=== PATIENT | male | born 1945 | race Caucasian/White ===

== ENCOUNTER 2020-09-07 13:25 | Inpatient (IN) | payer OTHER ==
[2020-09-07] VITALS (12 sets, daily range): BP systolic 121–168; BP diastolic 73–91
[~2020-09-07] VITALS: Ht 185.4 cm; Wt 99.8 kg
--- NOTE | ~2020-09-07 | EMS ---
[address] [address] EMS Patient Care Report Name: NATHAN COX Room #: 207-P ADM IN M.R.#: [id number] Admission: 09/07/20 Attend Phys: Nathan Zamarripa MD Discharge: Date of : 45 Report #: [id number] THIS REPORT FOR: //name// Report Transmitted: 09/08/2020 05:56 EMS Care Summary [facility] MED-ACT Incident [id number] @ 09/07/2020 12:52 Incident Location [address] [place] [address] Patient NATHAN COX Male, 74 Years 1945 Patient Address [address] [place] [address] Patient History None Reported, Patient Allergies Morphine, Patient Medications Ibuprofen, Chief Complaint Chest pain Disposition Transported No Lights/[place] Dispatch Reason Chest Pain (Non-Traumatic) Transported To [facility] Narrative Complaint: Chest pain History: Pt reports that he was cleaning the house, finishing vacuuming, when he had a sudden onset of substernal chest pain that radiated down his left arm. [address] [address] EMS Patient Care Report Name: NATHAN COX Room #: 207-P ADM IN M.R.#: [id number] Admission: 09/07/20 Attend Phys: Nathan Zamarripa MD Discharge: Date of : 45 Report #: [id number] Pt reports that his pain is more of a pressure and rates it a 9/10 on pain scale. Pt states that his pain is much like a pain he had last Wednesday night that lasted all night long. He reports that episode was from gas and was thinking that today's event was also gas. Pt states that he took his Ibuprofen with no relief of symptoms and called 911 after pain became worse and wouldn't go away. Pt reports taking Aspirin prior to EMS arrival as instructed by 911. Assessment: Pt found lying supine on floor in room of home, pt is mildly clammy and has minor s / s of distress secondary to chest pain. Pt has no obvious s / s of trauma noted. Rendered Treatment: Pt evaluated, history obtained, vitals assessed with bilateral BP's, EKG monitored with 12 lead. STEMI noted and EKG sent to [facility]. Quick combo pads placed on patient, nitro administered. STEMI notification to [facility] ER given. Pt assisted into stair chair and to front yard, assisted onto cot, secured and moved to unit. Transport: Pt transported to ER with two medics in back and FF otr refrigerated cdl truck driver. EKG monitored, IV established, nitro administered, pain medication administered, follow up 12 lead performed. Destination: Pt transported to [facility] ER via EMS. Pt care transferred to RN in ER room 1 with no changes en route. Pt moved to ER bed via 4 person sheet drag. Initial Vitals @13:01MI Suspected: true @13:20MI Suspected: true @13:12P: 88,R: 20,BP: 180/72,Glucose: 245, @12:59P: 87,R: 20,BP: 199/114,SpO2: 95, @13:22P: 93,R: 20,BP: 163/92,Pain: 9/10,SpO2: 96, @13:02P: 88,R: 20,BP: 194/117,SpO2: 98, @12:58P: 90,R: 20,BP: 201/130,Pain: 9/10,GCS: 15,Temp: 97.5F,SpO2: 98,Revised Trauma: 12, Assessments @13:02MENTAL:Person Oriented,Time Oriented,Place Oriented,Event Oriented,SKIN:Other,HEENT:Head/Face: No Abnormalities,Eyes: No Abnormalities,LUNG SOUNDS:ABDOMEN:PELVIS//GI:EXTREMITIES:Left Arm: No Abnormalities,Right Arm: No Abnormalities,Left Leg: No Abnormalities,Right Leg: No Abnormalities,PULSE:Radial: 2+ Normal,NEURO: Impression Acute Coronary Syndrome Procedures [address] [address] EMS Patient Care Report Name: NATHAN COX Room #: 207-P ADM IN .R.#: [id number] Admission: 09/07/20 Attend Phys: Nathan Zamarripa MD Discharge: Date of : 45 Report #: [id number] @13:0112-Lead ECGResponse: UnchangedSucceeded@-Lead ECGResponse: UnchangedSucceeded@PTAAspirin - 324 Milligrams (mg) - OralResponse: Unchanged@13:03Nitroglycerin - 0.4 Milligrams (mg) - SublingualResponse: Improved@13:15Nitroglycerin - 0.4 Milligrams (mg) - SublingualResponse: Unchanged@13:17Fentanyl - 50 Micrograms (mcg) - Intravenous (IV)Response: Unchanged@13:23Fentanyl - 50 Micrograms (mcg) - Intravenous (IV)Response: Unchanged@13:15Surgical Mask on PatientResponse: Unchanged@13:02ECG TransmittedResponse: Unchanged@13:05ALS AssessmentSucceeded@13:14Saline Lock 10cc (18 ga) Site: Antecubital-RightResponse: UnchangedSucceeded Timeline CO CHAIRMAN,Aspirin - 324 Milligrams (mg) - Oral,Response: Unchanged 12:51,Call Received 12:51,Psap Call 12:52,Dispatched 12:53,En Route 12:55,On Scene 12:56,At Patient 12:58,BP: 201/130 M,PULSE: 90,RR: 20 R,SPO2: 98 Ox,ETCO2: ,BG: ,PAIN: 9,GCS: 15, 12:59,BP: 199/114 M,PULSE: 87,RR: 20 R,SPO2: 95 Ox,ETCO2: ,BG: ,PAIN: ,GCS: , 13:01,12-Lead ECG,Response: UnchangedSucceeded, 13:01,BP: / M,PULSE: ,RR: R,SPO2: Ox,ETCO2: ,BG: ,PAIN: ,GCS: , 13:02,ECG Transmitted,Response: Unchanged 13:02,BP: 194/117 M,PULSE: 88,RR: 20 R,SPO2: 98 Ox,ETCO2: ,BG: ,PAIN: ,GCS: , 13:03,Nitroglycerin - 0.4 Milligrams (mg) - Sublingual,Response: Improved 13:05,ALS Assessment,Succeeded, 13:12,BP: 180/72 M,PULSE: 88,RR: 20 R,SPO2: Ox,ETCO2: ,B,PAIN: ,GCS: , 13:13,Depart Scene 13:14,Saline Lock 10cc 18 ga Site: Antecubital-Right,Response: UnchangedSucceeded, 13:15,Nitroglycerin - 0.4 Milligrams (mg) - Sublingual,Response: Unchanged 13:15,Surgical Mask on Patient,Response: Unchanged 13:17,Fentanyl - 50 Micrograms (mcg) - Intravenous (IV),Response: Unchanged 13:20,12-Lead ECG,Response: UnchangedSucceeded, 13:20,BP: / M,PULSE: ,RR: R,SPO2: Ox,ETCO2: ,BG: ,PAIN: ,GCS: , 13:22,BP: 163/92 M,PULSE: 93,RR: 20 R,SPO2: 96 Ox,ETCO2: ,BG: ,PAIN: 9,GCS: , 13:23,Fentanyl - 50 Micrograms (mcg) - Intravenous (IV),Response: Unchanged 13:23,At Destination 13:51,Call Closed Disclaimer v1.1 Copyright 2020 [employer] This EMS Care Summary contains data elements from the applicable legal record (which may be displayed differently). It is designed to provide pertinent information for the following purposes: continuity of care, clinical quality, [address] [address] EMS Patient Care Report Name: NATHAN COX Room #: 207-P ADM IN M.R.#: [id number] Admission: 09/07/20 Attend Phys: Nathan Zamarripa MD Discharge: Date of : 45 Report #: [id number] and state data reporting. The complete legal record is available to ED staff and administrators of the receiving hospital in [facility]'s Patient Tracker. All data is provided "as is."
[2020-09-07 13:44] LABS: ABSOLUTE NEUTROPHILS 11.6 thou/uL (1.4-8.2); BASOPHILS 0.3 % (0.0-2.0); EOSINOPHILS 0.9 % (0.0-3.0); HEMOGLOBIN 14.9 gm/dL (14.0-18.0); LYMPHOCYTES 10.4 % (24.0-44.0); MCH 31.3 pg (26.0-34.0); MCHC 34.7 g/dL (28.0-37.0); MCV 90.2 fL (80.0-100.0); MONOCYTES 2.8 % (1.0-8.0); PLATELET COUNT 186 thou/uL (150-400); POLYS 85.6 % (36.0-66.0); RBC 4.77 mil/uL (4.50-6.00); WBC 13.5 thou/uL (4.0-11.0)
[2020-09-07 13:54] LABS: POTASSIUM 4.3 mmol/L (3.5-5.1)
[2020-09-07 13:59] LABS: APTT 23.4 Seconds (24.5-32.8); INR 0.95; PROTIME 10.4 Seconds (10.5-12.1)
[2020-09-07 14:04] LABS: TOTAL BILIRUBIN 0.6 mg/dL (0.2-1.0); TOTAL PROTEIN 6.8 g/dL (6.4-8.2); TROPONIN-I 0.59 ng/mL (<0.06)
--- NOTE | 2020-09-07 18:24 | H ---
[facility] [place] [address] HISTORY AND PHYSICAL Name: NATHAN COX Room #: 207-P ADM IN M.R.#: [id number] Admission: 09/07/20 Attend Phys: Nathan Zamarripa MD Discharge: Date of : 45 Report #: [id number] THIS REPORT FOR: cc: [facility] - Clinic physician unknown [facility] - Clinic physician unknown Mark Galindo MD ~ DATE OF SERVICE: 09/07/2020 REASON FOR CONSULTATION: Acute myocardial infarction. HISTORY OF PRESENT ILLNESS: This is a 74-year-old gentleman who has been having problems with gas for quite some time. He had an episode last week where he had substernal epigastric discomfort and was relieved after flatulence occurred. He had been doing fine until today at 11:30 when he started having the same symptomatology while he was doing routine housework. Nothing strenuous. He states the discomfort is epigastric, substernal and feels like a pressure sensation that did not get relieved. He did take some ibuprofen for the discomfort and became diaphoretic. They sought medical attention when the symptoms persisted. He denies any prior history of hypertension, tobacco dependence or other major issues. He is a diet-controlled diabetic. PAST MEDICAL HISTORY: 1. Degenerative joint disease. 2. Diet controlled diabetes. ALLERGIES: MORPHINE. SOCIAL HISTORY: The patient is , does not smoke, does not consume alcohol, but socially, he does not use recreational drugs. REVIEW OF SYSTEMS: ____ a 10-point review of system is negative. LABORATORY DATA: Echocardiogram normal sinus rhythm, ST segment elevation in V2 through V5 without reciprocal changes. LABORATORY DATA: Known and reviewed in the chart. Initial troponin is pending. BUN and creatinine are 13 and 1.0 with a potassium of 4.3. H and H is ____. RADIOLOGIC: Chest x-ray demonstrates no acute changes. PHYSICAL EXAMINATION: GENERAL: Well-developed, well-nourished male in mild distress, which he states his discomfort is the least that it has been since it began. VITAL SIGNS: Blood pressure is 150/90, respirations are 16-18, temperature is 36.4, heart rate is 80 and regular. O2 sat is 97%. HEENT: Normocephalic, atraumatic. Pupils are equal, round, reactive to light [facility] [address] [place] [address] HISTORY AND PHYSICAL Name: NATHAN COX Room #: [address] [place] [address] IN M.R.#: [id number] Admission: 09/07/20 Attend Phys: Nathan Zamarripa MD Discharge: Date of : 45 Report #: [id number] and accommodation. Extraocular muscles are intact. Sclerae and conjunctivae are anicteric. NECK: JVD is normal. Carotid upstrokes are bilaterally symmetrical. No bruits are heard. No thyromegaly. No lymphadenopathy. LUNGS: Clear to auscultation. No wheezes, rhonchi or crackles. No CVA tenderness. CARDIAC: Demonstrates a regular rhythm. Normal first and second heart sounds. No ventricular or atrial gallops, no rubs noted. No murmurs. No lifts or heaves, PMI normal. ABDOMEN: Soft, nontender, nondistended. Normal bowel sounds. EXTREMITIES: Without cyanosis, clubbing or edema. Distal pulses are intact. DTR symmetrical. NEUROLOGIC: Cranial nerves 2-12 are grossly normal and symmetrical. PSYCHIATRIC: Alert, oriented with normal affect. SKIN: Warm and dry. IMPRESSION: 1. Acute ST segment elevation myocardial infarction. I discussed options of medical versus invasive and increased risk with both aspects. The patient wishes to proceed invasively. The risks, complications, and alternatives of cardiac catheterization, percutaneous revascularization conscious sedation were discussed with the patient with the present; he voiced understanding and wished to proceed. 2. Diabetes, diet controlled. We will need to monitor and evaluate this post-procedure. 3. Degenerative joint disease, on medication analgesics. <ELECTRONICALLY SIGNED> By: Mark Galindo MD 09/07/20 1824 1311 1328 Mark Galindo MD /nt
--- NOTE | 2020-09-07 18:59 | NUR ---
RECEIVED PT FROM THE [facility]. R GROIN MYNX CLOSURE, C/D/I, NO HEMATOMA. ADMISSION COMPLETED. POST CATH VITALS COMPLETED. PT COMPLETED ANGIOMAX GTT. PT TO CONTINUE ON NITRO GTT AT 2.5 MCG/KG/MIN, OR 14.5ML/HR. VSS, AFEBRILE, SR ON MONITOR. C/O PAIN IN CHEST RELATED TO CARD CATH. POC IS TO CONTINUE TO ASSESS CATH SITE; NITRO DRIP NEEDED FOR BP. BEDREST COMPLETED AT 1800. FALL PRECAUTIONS IN PLACE. NO CONCERNS AT THIS TIME.
--- NOTE | 2020-09-07 22:18 | NUR ---
AT APPROXIMATELY 2140 DURING ROUNDS NURSE WAS INFORMED BY PATIENT THAT PRESSURE AND PAIN HAVE RETURNED TO CHEST WHICH HE RATED 3-4/10. PATIENT STATED THAT HE HAS BEEN HAVING PRESSURE "ON AND OFF" THE PRECEDING HOUR. NURSE PROMPTLY PUT IN ORDER FOR STAT EKG AND PLACED CALL TO [employer]. NURSE RECEIVED ORDERS FOR INTEGRILLIN BOLUS AND GTT. PATIENT ALSO INFORMED TO LET NURSING STAFF KNOW WHEN PRESSURE AND PAIN DEVELOP AND NOT WAIT FOR STAFF TO ARRIVE IN THE ROOM. VITAL SIGNS STABLE. NURSE TO CONTINUE TO ASSESS.
[2020-09-08] VITALS (8 sets, daily range): BP systolic 121–147; BP diastolic 66–81
[2020-09-08 05:36] LABS: GLYCOHEMOGLOBIN (HGB A1C) 7.6 % (4.8-5.6)
[2020-09-08 12:31] LABS: HEMATOCRIT 37.9 % (42.0-52.0); HEMOGLOBIN 13.1 gm/dL (14.0-18.0); MCH 31.3 pg (26.0-34.0); MCHC 34.6 g/dL (28.0-37.0); MCV 90.6 fL (80.0-100.0); RBC 4.19 mil/uL (4.50-6.00); RDW 13.1 % (10.5-14.5); WBC 10.6 thou/uL (4.0-11.0)
[2020-09-08 12:55] LABS: ALBUMIN 3.2 g/dL (3.4-5.0); ANION GAP 10 mmol/L (7-16); BUN 9 mg/dL (7-18); CHLORIDE 103 mmol/L (98-107); CHOLESTEROL 138 mg/dL (<200); CO2 23 mmol/L (21-32); CREATININE 0.9 mg/dL (0.7-1.3); GLUCOSE 270 mg/dL (74-106); HDL CHOLESTEROL 31 mg/dL (>40); LDL CHOLESTEROL 78 mg/dL (<100); POTASSIUM 3.9 mmol/L (3.5-5.1); SGOT 206 U/L (15-37); SGPT 67 U/L (30-65); SODIUM 136 mmol/L (136-145); TC:HDL 4.5 Ratio (Not establshd); TOTAL BILIRUBIN 0.7 mg/dL (0.2-1.0); TOTAL PROTEIN 5.9 g/dL (6.4-8.2); TRIGLYCERIDE 146 mg/dL (<150); VLDL 29 mg/dL (<40)
--- NOTE | 2020-09-08 14:33 | EKG ---
[place] [address] [facility] [place] [address] ELECTROCARDIOGRAM REPORT Name: NATHAN COX Room #: 207- ADM IN M.R.#: [id number] Admission: 09/07/20 Attend Phys: Nathan Zamarripa MD Discharge: Date of : 45 Report #: [id number] [facility] ED Test Date: 2020-09-07 Test Time: 13:27:21 Pat Name: NATHAN COX Department: Room: 207 P Gender: M Outsole Caser: unknown : 1945 Requested By: Andrew Maradiaga Order Number: [id number] MD: Dioni Thacker Measurements Intervals [place] Rate: 87 P: 22 MT: 178 QRS: 93 QRSD: 147 T: 31 QT: 415 QTc: 500 Interpretive Statements Sinus rhythm Multiple ventricular premature complexes RBBB and LPFB Extensive anterior infarct, acute (LAD) No previous ECG available for comparison Electronically Signed On 09-08-2020 14:33:08 CDT by Dioni Thacker [email or web address] <ELECTRONICALLY SIGNED> By: Dioni Thacker MD, [facility] 09/08/20 1433 1327 1327 Dioni Thacker MD, FACC /EPI
--- NOTE | 2020-09-08 14:39 | EKG ---
[place] [address] [facility] [employer] [place] [place] [address] ELECTROCARDIOGRAM REPORT Name: NATHAN COX Room #: 207- ADM IN M.R.#: [id number] Admission: 09/07/20 Attend Phys: Nathan Zamarripa MD Discharge: Date of : 45 Report #: [id number] [facility] Test Date: 2020-09-07 Test Time: 21:57:33 Pat Name: NATHAN COX Department: Room: 207 P Gender: M Yard Associate: AJITH FARRELL : 1945 Requested By: Mark Galindo Order Number: [id number] MD: Dioni Thacker Measurements Intervals [place] Rate: 79 P: 44 [place]: 162 QRS: 91 QRSD: 160 T: 57 QT: 408 QTc: 468 Interpretive Statements Sinus rhythm RBBB and LPFB Anterior infarct, age indeterminate Compared to ECG 09/07/2020 13:27:21 Ventricular premature complex(es) no longer present Injury pattern no longer present Electronically Signed On 09-08-2020 14:38:53 CDT by Dioni Thacker [email or web address] <ELECTRONICALLY SIGNED> By: Dioni Thacker MD, [facility] 09/08/20 1438 2157 56 Dioni Thacker MD, [facility] /EPI
--- NOTE | 2020-09-08 19:13 | NUR ---
UPON INITIAL ASSESSMENT PATIENT BECAME IRATE WHEN NURSE WAS NOT RECEPTIVE TO PATIENT TAKING SHOWER UNSUPERVISED. NURSE INFORMED PATIENT THAT HE IS CONSIDERED A HIGH FALL RISK AND IT IS AGAINST HOSPITAL POLICY TO PUT SUCH PATIENTS IN SHOWER UNSUPERVISED. NURSE ATTEMPTED TO DISCUSS ALTERNATIVES (I.E. SUPERVISED SHOWER, UNSUPERVISED BED BATH, ETC.ETC.) BUT PATIENT WAS UPSET AND TURNED AWAY FROM ASSESSMENT. HE STATED THAT HE "WILL GET MY SHOWER IN THE MORNING WHEN THE DOCTOR GET'S HERE". NURSE TO LET PATIENT CALM DOWN AND THEN ATTEMPT A SAFE COMPROMISE.
[2020-09-09 04:21] VITALS: BP 132/77
[2020-09-09 07:38] VITALS: BP 115/69
--- NOTE | 2020-09-09 10:37 | 2DMMODE ---
[facility] [place] [address] [place] [address] 2 D/M-MODE ECHOCARDIOGRAM Name: NATHAN COX Room #: 207-P ADM IN M.R.#: [id number] Admission: 09/07/20 Attend Phys: Nathan Zamarripa MD Discharge: Date of : 45 Report #: [id number] THIS REPORT FOR: cc: [facility] - Clinic physician unknown [facility] - Clinic physician unknown Mark Galindo MD ~ APPROVED REPORT Study performed: 09/09/2020 08:39:20 EXAM: Comprehensive 2D, Doppler, and color-flow Echocardiogram BSA: 2.22 Indications Hypotension 2D Dimensions RVDd: 34.93 mm IVSd: 15.39 (7-11mm) LVOT Diam: 23.14 (18-24mm) LVDd: 51.26 mm PWd: 10.48 (7-11mm) Ascending Ao: 35.08 (22-36mm) LVDs: 42.34 (25-40mm) Left Atrium: 38.67 (27-40mm) Aortic Root: 36.42 mm Volumes Left Atrial Volume (Systole) Single Plane 4CH: 46.52 mL Single Plane 2CH: 45.49 mL LA ESV Index: 23.00 mL/m2 Aortic Valve AoV Peak Roosevelt.: 1.27 m/s AO Peak Gr.: 6.42 mmHg LVOT Max P.92 mmHg LVOT Max V: 0.99 m/s SELINA Vmax: 3.28 cm2 Mitral Valve E/A Ratio: 0.6 MV Decel. Time: 173.19 ms MV E Max Roosevelt.: 0.50 m/s MV A Roosevelt.: 0.89 m/s MV PHT: 50.22 ms [facility] [address] [place] [address] 2 D/M-MODE ECHOCARDIOGRAM Name: NATHAN COX Room #: 207-P [facility]#: [id number] Admission: 09/07/20 Attend Phys: Nathan Zamarripa MD Discharge: Date of : 45 Report #: [id number] IVRT: 93.43 ms Pulmonary Valve PV Peak Roosevelt.: 0.77 m/s PV Peak Gr.: 2.35 mmHg Tricuspid Valve TR Peak Roosevelt.: 2.47 m/s RAP Estimate: 5.00 mmHg TR Peak Gr.: 24.49 mmHg PA Pressure: 29.00 mmHg Left Ventricle The left ventricle is normal size. Regional wall motion abnormalities are noted. Moderate basal septal hypertrophy is present. Left ventricular systolic function is moderate to severely decreased. LVEF is 30-35%. The left ventricular diastolic function is normal. Right Ventricle The right ventricle is normal size. The right ventricular systolic function is normal. Atria The left atrium size is normal. The right atrium size is normal. Aortic Valve The aortic valve is normal in structure; mildly calcified. No aortic regurgitation is present. There is no aortic valvular stenosis. Mitral Valve The mitral valve is normal in structure. There is no mitral valve regurgitation noted. No evidence of mitral valve stenosis. Tricuspid Valve The tricuspid valve is normal in structure. Trace tricuspid regurgitation. Estimated PAP is 30mmHg. Pulmonic Valve The pulmonary valve is normal in structure. There is no pulmonic valvular regurgitation. Great Vessels The aortic root is normal in size. The ascending aorta is normal in size. IVC is normal in size and collapses >50% with inspiration. [facility] [place] [address] 2 D/M-MODE ECHOCARDIOGRAM Name: NATHAN COX Room #: 207-P ADM IN .R.#: [id number] Admission: 09/07/20 Attend Phys: Nathan Zamarripa MD Discharge: Date of : 45 Report #: [id number] Pericardium There is no pericardial effusion. <Conclusion> The left ventricle is normal size. Moderate basal septal hypertrophy is present. Regional wall motion abnormalities are noted. Regional wall motion abnormalities are noted. LVEF is 30-35%. The left atrium size is normal. The aortic valve is normal in structure; mildly calcified. The mitral valve is normal in structure. The tricuspid valve is normal in structure. Trace tricuspid regurgitation. Estimated PAP is 30mmHg. The pulmonary valve is normal in structure. The aortic root is normal in size. There is no pericardial effusion. <ELECTRONICALLY SIGNED> By: Mark Galindo MD 09/09/20 1036 1036 1036 Mark Galindo MD /INF
--- NOTE | 2020-09-09 11:13 | NUR ---
P.T. EVAL AND TREAT ORDERS RECEIVED. CHART REVIEWED. SPOKE TO Pt AND HIS NURSE, RANJIT, AND Pt IS TO D/C TO HOME TODAY. Pt REFUSES ANY P.T. PRIOR TO D/C HE STATES THAT HE IS GETTING AROUND WELL AND SAFELY AND DOES NOT WANT IT. WILL D/C P.T. AT THIS TIME.
[2020-09-09 11:30] VITALS: BP 107/67
[2020-09-09 11:49] LABS: CALCIUM 8.3 mg/dL (8.5-10.1); POTASSIUM 3.6 mmol/L (3.5-5.1)
[2020-09-09] MEDS ORDERED: NITROGLYCERIN0.4 MG SUBLING (13:51)
[2020-09-09] MEDS ORDERED: ASPIRIN325 PO (13:51)
[2020-09-09] MEDS ORDERED: LIPITOR40 MG PO (13:51)
[2020-09-09] MEDS ORDERED: EFFIENT10 MG PO (13:51)
[2020-09-09] MEDS ORDERED: LISINOPRIL2.5 MG PO (13:51)
[2020-09-09] MEDS ORDERED: ACETAMINOPHEN325 M1 PO (13:51)
[2020-09-09] MEDS ORDERED: METOPROLOL TART25 MG PO (13:51)
[2020-09-09 14:10] LABS: ALBUMIN 3.1 g/dL (3.4-5.0); DIRECT BILIRUBIN 0.2 mg/dL (<0.1-0.2); TOTAL BILIRUBIN 0.9 mg/dL (0.2-1.0)
[2020-09-09 15:05] VITALS: BP 107/67
--- NOTE | 2020-09-09 15:15 | NUR ---
sp with RN who reports called. She wants patient to dc to rehab. She reports her and son had possesion of patients phone and threats on phone. Spoke with director of case mgt who deferred to risk/safety. Sp with Harish in risk/safety. He advised to question patient if safe for home. Patient admitted with stemi. Patient reports he is from home he is hopeful to dc today. He mentioned nothing of what referring to threats. sp with . She reports lived here in and moved to [place] and returned to , have been here 5 years. is caring for her mother with espphageal cancer. She reports her sp is a casino investigator. She report just learned of threats to him/family once his cell phone in possesion when admitted. reports her son sp with [place] police and reports completed. She gave patient his cell phone and alerted tank systems maintainer to be calling. She reports patient is aware of them knowing of threats. Sp with patient and questioned if safe to return home at dc. Patient reports making "[facility]." He reports feels safe to discharge. Dr Zamarripa sp with and if cardiology clears patient can dc today. aware.
[2020-09-09 16:26] VITALS: BP 117/70
--- NOTE | 2020-09-09 18:48 | NUR ---
PATIENT DISCHARED TO HOME. AT BEDSIDE DURING DISCHARGE EDUCATION AND TEACHING. IV AND TELE REMOVED. PAPER SCRIPTS GIVEN TO PATIENT. NO QUESTIONS OR CONCERNS AT TIME OF DC. TAKEN BY WHEELCHAIR WITH TO PRIVATE VEHICLE.
--- NOTE | 2020-09-19 11:49 | CATHLAB ---
[facility] [place] [address] [place] [address] INVASIVE PROCEDURE REPORT Name: NATHAN COX Room #: 207-P [facility] IN M.R.#: [id number] Admission: 09/07/20 Attend Phys: Nathan Zamarripa MD Discharge: 09/09/20 Date of : 45 Report #: [id number] THIS REPORT FOR: cc: [facility] - Clinic physician unknown [facility] - Clinic physician unknown Mark Galindo MD ~ APPROVED REPORT Study performed: 09/07/2020 14:02:17 Patient Details Patient Status: ED Room #: The patient is a 74 year-old male Event Personnel Mark Galindo Power Plant Operator Apprentice, Kelley Lund RN RN, Luis Daniel Bhatt RTR Monitor, Marizol Eagle RTR, PRINT WASHER Scrub Procedures Performed Art Access - R femoral artery* Left Heart Cath w/or w/o Coronaries [id number] [facility] Place w/wo Plasty Single LAD 193002 Hemostasis w/ Mynx 74772 Initial Mod Sed Same Phys/QHP Gr5y [id number] Mod Sed Same Phys/QHP Ea [id number], supervision of conscious sedation Indication STEMI (>0 to less than or equal to 6 hours), Chest pain Risk Factors Family History, Hypercholesterolemia, Hypertension Procedure Narrative The Right Groin^ was infiltrated with 1% Lidocaine subcutaneous anesthesia. A PINNACLE 6FR Sheath #[id number] sheath was inserted into the RFA^. Coronary angiography was performed using coronary diagnostic catheters. The right coronary system was accessed and visualized with a JR4 catheter. The left coronary system was accessed and visualized with a VISTA 6FR JL4 #[id number] catheter. The left ventricle was accessed and visualized with a PIGTAIL catheter. Left ventricular/Aortic Valve gradient assessed via catheter pullback. Closure device was deployed with a 6 Fr MYNXGRIP 6/7F #[id number]. Hemostasis was obtained with manual pressure following sheath removal without any complications. The patient tolerated the procedure well [facility] [place] [address] INVASIVE PROCEDURE REPORT Name: NATHAN COX Room #: 207-P [facility] IN ..#: [id number] Admission: 09/07/20 Attend Phys: Nathan Zamarripa MD Discharge: 09/09/20 Date of : 45 Report #: [id number] and there were no complications associated with the procedure. There was no hematoma. Intraoperative Conscious Sedation Sedation start time: 1413 Case end Time: 1525 Fentanyl 100 mcg Fluoro Time: 14.50 minutes Dose: DAP 27916.70 cGycm2 2024 mGy Contrast Type and Amount: Visipaque 205 ml Coronary Angiography The patient's coronary anatomy is right dominant. Diagnostic Cath Left Main Large-caliber vessel normal origin bifurcates left into descending left circumflex. No high-grade lesions are present LAD Moderate caliber vessel which arises and there is an eccentric lesion proximally which appears to be greater than 70%. And continues on gives rise to a small diagonal branch and then is totally occluded. At the point of occlusion there is a second small diagonal vessel which arises and has pulsatile flow. Post dilatation the LAD is a moderate caliber type II vessel with luminal irregularities beyond the dilated mid LAD lesion Diagonal 1 Diminutive size vessel without high-grade lesion Diagonal 2 Small caliber vessel Circumflex Moderate to large caliber vessel which has a mild plaquing at its origin and continues on in the AV groove giving rise to a small first marginal branch and a large second marginal branch. It continues on is a small caliber vessel in the AV groove posteriorly terminating without high-grade lesions. OM1 Small degenerative diminutive size vessel without high-grade lesion OM2 Large-caliber vessel coursing on the lateral aspect left ventricle giving rise to a small branch that has a high-grade lesion at its ostium but the vessel is less than half a millimeter in diameter. The marginal within continues on terminating towards the apex free of high-grade disease Right Coronary Monitor large-caliber dominant vessel of normal origin courses in the AV groove posteriorly giving rise to posterior descending artery and terminates the posterior wall branch. There is mild irregularities noted but no high-grade lesions are present. R PDA Moderate caliber vessel with a proximal 40 to 50% lesion and then continues on in the posterior interventricular sulcus giving rise to small branches with no high-grade lesions noted which is the [facility] [address] [place] [address] INVASIVE PROCEDURE REPORT Name: NATHAN COX Room #: 207-P [facility] IN M.R.#: [id number] Admission: 09/07/20 Attend Phys: Nathan Zamarripa MD Discharge: 09/09/20 Date of : 45 Report #: [id number] apex Hemodynamics The aortic pressure is 135/82 mmHg with a mean of 106 mmHg. The left ventricular pressure is 130/20 mmHg with a mean of mmHg. The left ventricular end diastolic pressure is 38 mmHg. Pullback from the left ventricle to the aorta revealed a mm gradient across the aortic valve. PCI Technique After determined to proceed with intervention a 6 Vietnamese low Arnulfo left guide catheter had already been utilized as diagnostic catheter for pictures. A 014 wire was then advanced into the distal LAD and dilatation proceeded after unable to primary stent. These dilatations provided in crease antegrade flow. The patient symptoms improved with flow but rapidly reoccluded as stent was positioned and deployed with inflations as noted in the procedure log. At this point time the second diagonal branch was lost to flow with like prickly plaque shifting or thrombus. At this point in time visualization of the proximal lesion was performed with high-grade lesion and a second stent was then positioned and deployed and fully dilated prolonged dilatations. Intracoronary nicardipine was then utilized with increased blood flow and some resolution of the second diagonal decrease blood flow. Patient symptoms were improved and antegrade flow was noted. No loss of sidebranch per se distalization were noted. PCI Technique Lesion Percutaneous coronary intervention was performed on the mid left anterior descending artery segment. A VISTA 6FR JL4 #[id number] Guide Catheter was used to engage the ostium. A Luge Wire .014 x 182CM #[id number] Interventional Guidewire was used to cross the lesion. BALLOON DILATION A Balloon catheter Sprinter OTW 2.5 x 12 #[id number] was inserted and inflated up to 6.00atm for 9seconds. Additional Inflation: 4.00atm for 10seconds. STENT DEPLOYMENT A drug-eluting stent RESOLUTE JONATHAN OTW 2.5 X 22 #[id number] was inserted and inflated up to 12.00atm for 8seconds. Additional Inflation: 18.00atm for 8seconds. POST STENT DEPLOYMENT BALLOON DILATION A Balloon catheter Sprinter OTW 3.0 x 15 #[id number] was inserted and [facility] [address] [place] [address] INVASIVE PROCEDURE REPORT Name: NATHAN COX Room #: 207-P [facility] IN .R.#: [id number] Admission: 09/07/20 Attend Phys: Nathan Zamarripa MD Discharge: 09/09/20 Date of : 45 Report #: [id number] inflated up to 14.00atm for 12seconds. Additional Inflation: 16.00atm for 17seconds. Additional Inflation: 18.00atm for 8seconds. PCI Technique Lesion 2 Percutaneous Coronary Intervention was performed on the proximal left anterior descending artery segment. A VISTA 6FR JL4 #[id number] Guide Catheter was used to engage the ostium. A Luge Wire .014 x 182CM #[id number] Interventional Guidewire was used to cross the lesion. Stent Deployment A drug-eluting stent RESOLUTE JONATHAN OTW 3.0 X 8 #[id number] was inserted and inflated up to 14.00atm for 17seconds. Additional Inflation: 14.00atm for 7seconds. Conclusion 1. Coronary disease, severe, single-vessel 2. Successful percutaneous revascularization and stenting of the proximal mid LAD and proximal LAD respectively with LOUIE stenting 3. Second diagonal branch compromise with MULUGETA I flow 4. Abnormal hemodynamics with elevated low ventricular diastolic pressures Recommendations Cardiac Risk Reduction Program Medical Therapy Aggressive dual antiplatelet therapy and lipid management will proceed per protocol <ELECTRONICALLY SIGNED> By: Mark Galindo MD 09/19/20 1149 1149 1149 Mark Galindo MD /INF
== END 2020-09-09 19:30 | disposition home or self-care (01) | DRG 246 ==
LOC: ER 13:25 → TBA 15:07 → 2N 15:07
PROVIDERS: Emergency Medicine; Internal Medicine; Nurse Practitioner; ADMIT Internal Medicine; ATTEND Internal Medicine
DX: I21.3 ST elevation (STEMI) myocardial infarction of unspecified site (principal); R65.11 Systemic inflammatory response syndrome (SIRS) of non-infectious origin with acute organ dysfunction; I10 Essential (primary) hypertension; M19.90 Unspecified osteoarthritis, unspecified site; I25.10 Atherosclerotic heart disease of native coronary artery without angina pectoris; E11.9 Type 2 diabetes mellitus without complications; E78.5 Hyperlipidemia, unspecified; Z88.5 Allergy status to narcotic agent
CPT/HCPCS: 10081

== ENCOUNTER → 2020-11-05 | Outpatient (CLI) | payer OTHER ==
[~2020-11-05] MED LIST: ACETAMINOPHEN325 M1 PO; ASPIRIN325 PO; EFFIENT10 MG PO; LIPITOR40 MG PO; LISINOPRIL2.5 MG PO; METOPROLOL TART25 MG PO; NITROGLYCERIN0.4 MG SUBLING
== END ==
LOC: SJCVCIMAG 14:49
PROVIDERS: ATTEND Internal Medicine
DX: I08.0 Rheumatic disorders of both mitral and aortic valves (principal); Z95.1 Presence of aortocoronary bypass graft

== ENCOUNTER → 2021-01-07 | Outpatient (CLI) | payer OTHER | LOC: SJCVCIMAG 14:52 | PROVIDERS: ATTEND Internal Medicine | DX: I51.7 Cardiomegaly (principal); I25.10 Atherosclerotic heart disease of native coronary artery without angina pectoris; Z95.1 Presence of aortocoronary bypass graft; Z79.82 Long term (current) use of aspirin; Z79.899 Other long term (current) drug therapy ==